=== PATIENT | male | born 1950 | race Caucasian/White ===

== ENCOUNTER → 2021-10-05 | Outpatient (CLI) | payer MEDICARE ==
[~2021-10-05] MED LIST: NORCO 5-325 TA1 EACH PO; PREDNISONE 20 M20 MG PO; PREDNISONE 50 M50 MG PO; PREDNISONE20 MG PO
== END ==
LOC: NM 08:39
DX: I25.10 Atherosclerotic heart disease of native coronary artery without angina pectoris (principal); R07.9 Chest pain, unspecified
CPT/HCPCS: 78452; 93017; A9502; J2785